=== PATIENT | female | born 1990 | race Caucasian/White ===

== ENCOUNTER 2024-02-14 17:23 | Emergency (ER) | payer MEDICAID, SELFPAY ==
[2024-02-14 17:35] VITALS: BP 159/67; PULSE 98; RESP 18; TEMP 36.8; O2SAT 94; BMI 57.6
--- NOTE | 2024-02-17 00:09 | ED.GENADULT ---
HPI - General Adult General Chief complaint: Extremity Pain/Injury, Lower Stated complaint: R leg pain Time Seen by Provider: 02/14/24 17:53 History of Present Illness HPI narrative: LWBS Related Data Home Medications ?Medication ?Instructions ?Recorded ?Confirmed dextroamphetamine-amphetamine 20 1 tab PO DAILY 02/14/24 02/14/24 mg tablet dextroamphetamine-amphetamine ER 1 cap PO BID 02/14/24 02/14/24 30 mg 24hr capsule,extend release Course Vital Signs Vital signs: Initial Vital Signs Temperature 98.2 F 02/14/24 17:35 Temperature Source Temporal Artery Scan 02/14/24 17:35 Pulse Rate 98 02/14/24 17:35 Pulse Rhythm Regular 02/14/24 17:35 Pulse Strength 3+ Normal 02/14/24 17:35 Respiratory Rate 18 02/14/24 17:35 Blood Pressure 159/67 H 02/14/24 17:35 Blood Pressure Mean 97 02/14/24 17:35 Blood Pressure Position Sitting 02/14/24 17:35 Pulse Oximetry 94 02/14/24 17:35 Oxygen Delivery Method Room Air 02/14/24 17:35 Vital Signs Temperature 98.2 F 02/14/24 17:35 Pulse Rate 98 02/14/24 17:35 Respiratory Rate 18 02/14/24 17:35 Blood Pressure 159/67 H 02/14/24 17:35 Pulse Oximetry 94 02/14/24 17:35 Oxygen Delivery Method Room Air 02/14/24 17:35 Temperature 98.2 F 02/14/24 17:35 Pulse Rate 98 02/14/24 17:35 Respiratory Rate 18 02/14/24 17:35 Blood Pressure 159/67 H 02/14/24 17:35 Pulse Oximetry 94 02/14/24 17:35 Oxygen Delivery Method Room Air 02/14/24 17:35 Discharge Plan Discharge Patient Disposition: Left Without Being Seen
== END 2024-02-14 17:53 | disposition left against medical advice (07) ==
PROVIDERS: Emergency Provider Emergency Medicine
DX: Z53.21 Procedure and treatment not carried out due to patient leaving prior to being seen by health care provider (principal)
CPT/HCPCS: 99281

== ENCOUNTER 2024-10-12 07:57 | Emergency (ER) | payer MEDICAID, SELFPAY ==
[2024-10-12 07:59] VITALS: BP 146/68; PULSE 93; RESP 18; TEMP 36.4; O2SAT 97; BMI 57.2
--- OUTSIDE RECORDS SUMMARY | 2024-10-12 07:59 | XMS_ITS | Encounter Summary ---
Author Organization [facility] Address [address], [place] [address] Care Team Providers Care Tax Collection Coordinator Name Role Phone Sheyla Torres MD Primary Care Provider [phone] Encounter Details Date Type Department Care Team (Latest Contact Info) Description 10/14/1996 Orders Only Naida Carvajal [facility] [address] [place] [address] Social History Tobacco Use Types Packs/Day Years Used Date Smoking Tobacco: Never Assessed Comments Unknown Sex and Gender Information Value Date Recorded Sex Assigned at Not on file Legal Sex Female 4:42 AM CDT Gender Identity Not on file Sexual Orientation Not on file documented as of this encounter Plan of Treatment Not on file documented as of this encounter Visit Diagnoses Not on filedocumented in this encounter Care Teams Tax Collection Coordinator Relationship Specialty Start Date End Date Sheyla Torres MD [address] [place] [address] PCP - General Family Practice 10/01/16 documented as of this encounter
--- OUTSIDE RECORDS SUMMARY | 2024-10-12 07:59 | XMS_ITS | Encounter Summary ---
Author Organization [facility] Address [address] [address] Care Team Providers Care Expediter Service Order Name Role Phone Sheyla Torres MD Primary Care Provider [phone] Encounter Details Date Type Department Care Team (Latest Contact Info) Description 05/17/1996 Orders Only Lorenzo Kilpatrick MD OFF SITE [address] [place] [address] Social History Tobacco Use Types Packs/Day Years [...] on filedocumented in this encounter Care Teams Expediter Service Order Relationship Specialty Start Date End Date Sheyla Torres MD [address] [place] [address] PCP - General Family Practice 10/01/16 documented as of this encounter
--- OUTSIDE RECORDS SUMMARY | 2024-10-12 07:59 | XMS_ITS | Encounter Summary ---
Author Organization [facility] Address [address] [place] [address] Care Team Providers Care Wool Hat Flanger Name Role Phone Sheyla Torres MD Primary Care Provider [phone] Encounter Details Date Type Department Care Team (Latest Contact Info) Description 03/21/1997 Orders Only Skip Osorio MD [address] [place], [place] [address] Social History Tobacco Use Types Packs/Day Years [...] on filedocumented in this encounter Care Teams Wool Hat Flanger Relationship Specialty Start Date End Date Sheyla Torres MD [address] [place] [address] PCP - General Family Practice 10/01/16 documented as of this encounter
--- OUTSIDE RECORDS SUMMARY | 2024-10-12 07:59 | XMS_ITS | Clinical Summary ---
Author Organization [facility] Address [address] [place] [address] Care Team Providers Care Otolaryngology Physician Name Role Phone No Ref-Primary, Physician Primary Care Provider Allergies Active Allergy Reactions Criticality Noted Date Comments Amoxicillin Anaphylaxis High 09/06/2017 Metronidazole Itching 06/01/2017 No Clinical Screening - See Comments 09/06/2017 Another antibiotic Medications Vit-Fe Fumarate-FA (PNV PLUS MULTIVITAMIN) 27-1 MG TABS per tablet Take 1 tablet by mouth daily Active acetaminophen (TYLENOL) 325 MG tablet Take 650 mg by mouth every 6 hours as needed for mild pain Active oxyCODONE (ROXICODONE) 5 MG tabletIndicatio ns:S/P repeat low transverse Take 1-2 tablets (5-10 mg) by mouth every 4 hours as needed 12 tablet 03/01/2020 Active oxyCODONE-aceta minophen (PERCOCET) 5-325 MG tablet Take 1-2 tablets by mouth every 4 hours as needed for pain 8 tablet 01/15/2021 Active amphetamine-dex troamphetamine (ADDERALL) 20 MG tablet Take 20 mg by mouth daily as needed Active amphetamine-dex troamphetamine (ADDERALL XR) 30 MG 24 hr capsule Take 30 mg by mouth 2 times daily Active Active Problems Problem Noted Date Diagnosed Date S/P repeat low transverse 02/27/2020 Immunizations Immunization Administration Dates Next Due Influenza Vaccine >6 months,quad, PF 03/01/2020 Social History Tobacco Use Types Packs/Day Years Used Date Smoking Tobacco: Every Day Cigarettes Smokeless Tobacco: Never Tobacco Cessation:Ready to Q uit: No Alcohol Use Standard Drinks/Week Comments Never 0 (1 standard drink = 0.6 oz pur e alcohol) AUDIT-C Answer Date Recorded Q1: How often do you have a drink containing alc ohol? Never 02/24/2020 Average Number of Drinks Not on file 020 Frequency of Binge Drinking Not on file 02/04 [place] Depression Scale Answer Date Recorded [place] Depression Score 5 02/29/2020 Last EPDS Self Harm Result Not on file 02/28 Adolescent Education Answer Date Record ed Getting School Help Needed Not on file 11/25 Comments No Sex and Gender Information Value Date Recorded Sex Assigned at Not on file Legal Sex Female 3:04 PM CDT Gender Identity Not on file Sexual Orientation Not on file Last Filed Vital Signs Vital Sign Reading Time Taken Comments Blood Pressure 143/94 10/15/2023 3:48 PM CDT Pulse 96 10/15/2023 3:30 PM CDT Temperature 36.9 C (98.4 F) 10/15/2023 2:30 PM CDT Respiratory Rate 22 10/15/2023 12:20 PM CDT Oxygen Saturation 98% 10/15/2023 3:48 PM CDT Inhaled Oxygen Concentration - - Weight 127 kg (280 lb) 10/15/2023 12:20 PM CDT Height 149.9 cm (4' 11) 10/15/2023 12:20 PM CDT Body Mass Index 56.55 10/15/2023 12:20 PM CDT Plan of Treatment Health Maintenance Due Date Last Done Comments ADVANCE CARE PLANNING 1990 ANNUAL REVIEW OF HM ORDERS 1990 PNEUMOCOCCAL VACCINE: PEDIATRICS (0 to 5 YEARS) AND AT-RISK PATIENTS (6 to 49 YEARS) (1 of 2 - PCV) 2009 PAP 08/31/2011 YEARLY PREVENTIVE VISIT 05/08/2020 05/09/2019, 04/24 DTAP/TDAP/TD VACCINE (8 - Td or Tdap) 08/27/2022 08/27/2012, 06/01/2010, 06/07/2002, Additional history exists COVID-19 VACCINE ( - season) 2023 PHQ-2 (once per calendar year) 2024 INFLUENZA VACCINE (#1) 2024 , 02/21/2018, 02/17/2015, Additional history exists ZOSTER VACCINE (1 of 2) 2040 HEPATITIS B VACCINE Completed 01/19/2001, 01/19/2001, 05/29/2000, Additional history exists MENINGITIS VACCINE Aged Out 07/07/2006, 07/07/2006 No longer eligible based on patient's age to complete this topic HPV VACCINE Completed 11/28/2006, 06/2006, 06/08/2006 HEPATITIS C SCREENING Completed 05/09/2019 HIV SCREENING Completed 08/19/2019, 05/09/2019 Procedures Procedure Name Priority Date/Time Associated Diagnosis Comments HIV ANTIGEN ANTIBODY COMBO Routine 08/19/2019 from Last 3 Months or Most Recently Relevant to Health Maintenance Results * HIV Antigen Antibody Combo (08/19/2019) HIV Antigen Antibody Combo non reactive Blood specimen (specimen) Patient Reported LAB - BLOOD ORDERABLES Final Re sult from Last 3 Months or Most Recently Relevant to Health Maintenance Insurance [employer] Advance Directives For more information, please contact: [phone] * Full Code (Latest Code Status on File) Date Activated Date Inactivated Comments 02/28/2020 6:02 AM 03/01/2020 2:59 PM All basic and advanced life-sustaining interventions are performed as appropriate Question Answer Comments Code status determined by: Discussion with fernandoe nt/ legal decision maker Care Teams Otolaryngology Physician Relationship Specialty Start Date End Date No Ref-Primary, Physician PCP - General 10/15/23
--- OUTSIDE RECORDS SUMMARY | 2024-10-12 07:59 | XMS_ITS | Encounter Summary ---
Author Organization [facility] Address [address] [place] [address] Care Team Providers Care Blueprint Assembler Name Role Phone Sheyla Torres MD Primary Care Provider [phone] Encounter Details Date Type Department Care Team (Latest Contact Info) Description 02/05/1997 Orders Only Je Alvarenga MD [address] [facility] [id number] [place] [address] Social History Tobacco Use Types Packs/Day Years [...] on filedocumented in this encounter Care Teams Blueprint Assembler Relationship Specialty Start Date End Date Sheyla Torres MD [address] [place] [address] PCP - General Family Practice 10/01/16 documented as of this encounter
--- OUTSIDE RECORDS SUMMARY | 2024-10-12 07:59 | XMS_ITS | Encounter Summary ---
Author Organization [facility] Address [address], [place] [address] Care Team Providers Care Lens Grinder Rough Name Role Phone Sheyla Torres MD Primary Care Provider [phone] Encounter Details Date Type Department Care Team (Latest Contact Info) Description 08/15/1996 Orders Only Naida Carvajal [facility] [address], [place] [address] Social History Tobacco Use Types Packs/Day Years [...] on filedocumented in this encounter Care Teams Lens Grinder Rough Relationship Specialty Start Date End Date Sheyla Torres MD [address] [place] [address] PCP - General Family Practice 10/01/16 documented as of this encounter
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
--- OUTSIDE RECORDS SUMMARY | 2024-10-12 08:00 | XMS_ITS | Patient Health Record ---
Author Organization [facility] Address [address] [place] [address] Care Team Providers Care Auto Body Repair Technician Name Role Phone Sheyla Torres Primary Care Provider BOGDAN Patton Unavailable [phone] Allergies Allergen (clinical drug ingredient) Drug/Non Drug Allergy documented on EMR Reaction Allergy Type Onset Date Status pine trees (uncoded) Unknown Allergy Active amoxicillin Amoxicillin Unknown Drug Allergy Act ella Reason For Referral No Information Medications Medication SIG (Take, Route, Frequency, Duration) Notes Start Date End Date Status Adderall XR Active Social History Tobacco Use: Social History Observation Description Date Details (start date - stop date) Current Smoker NA - NA Social History Alcohol Use: Social Info Question Answer Notes Recreational drugs Recreational Drug Use: No Alcohol Screen Did you have a drink containing alcohol in the past year? Yes Points 0 Interpretation Negative Tobacco Use: Social Info Question Answer Notes Tobacco use/smoking Are you a current smoker Plan Of Treatment No Information Insurance Providers Payer Name Payer Address Payer Phone Subscriber Number Group Number Insured Name Patient Relationship to Insured Coverage Start Date Coverage End Date [facility] [address] [place], [place] [id number] Leighann Pimentel Self - patient is the insured Medications Administered Medication Instructions Date of Administration Dosage Notes Kenalog 40 mg/ml 04/18/2022 80 mg Medical (General) History Medical History History ICD Code asthma seizure Surgical History Surgery Date(Month/Year) c section
--- OUTSIDE RECORDS SUMMARY | 2024-10-12 08:00 | XMS_ITS | Clinical Summary ---
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 of HPV in malignant processes has not been established. Methodology: Real Time PCR Other (Cervical) 01/12/2024 2:33 PM SPRAY II PAINTER 01/13/2024 6:40 AM SPRAY II PAINTER Narrative [facility] - 01/18/2024 10:34 AM SPRAY II PAINTER SPLIT 01/12/2024 FROM [id number] Bria MCKEON PATHOLOGY/CYTOLOGY Fin al Result [address] [address], [place] [facility] [place] [address] from Last 3 Months or Most Recently Relevant to Health Maintenance Additional Health Concerns Infection Onset Date Last Indicated Rule-Out Stool Pathogen 08/29/2024 08/30/19 25 Insurance [id number] [address] KRYSTIAN DE LEON [address] CARE [place] KRYSTIAN LOMAS [id number] Advance Directives * Full Code (Latest Code Status on File) Date Activated Date Inactivated Comments 10/17/2023 10:31 PM 10/18/2023 7:01 PM Question Answer Comments Code Status Discussion: Reviewed Preferences Care Teams Lesson Instructor Relationship Specialty [place] [address] KRYSTIAN López [address] PCP - General Physician Community Resource Officer 01/12/24
--- NOTE | 2024-10-12 08:21 | CRLHL7_ITS ---
For Patients: As a result of the Century Cures Act, medical imaging exams and procedure reports are released immediately into your electronic medical record. You may view this report before your referring provider. If you have questions, please contact your health care provider. INDICATION: Abdominal pain COMPARISON: None TECHNIQUE: CT examination of the abdomen and pelvis was performed following the uneventful intravenous administration of 138 cc of Isovue 370. Thin section axial images were obtained from the lung bases through the pubic symphysis. Please note that all CT scans at this facility use dose modulation, iterative reconstruction, and/or weight-based dosing when appropriate to reduce radiation dose to as low as reasonably achievable. FINDINGS: LUNG BASES: The lung bases as visualized appear normal.The heart size is normal at the lung bases. LIVER/BILIARY SYSTEM:Enlarged fatty infiltrated liver. Contracted but otherwise unremarkable appearing gallbladder ADRENALS: Normal KIDNEYS, URETERS and BLADDER:Evaluation is somewhat limited in the mid abdomen due to motion artifact. The left kidney appears normal. The right kidney is malrotated. There is a suggestion of right perinephric and periureteric inflammatory change with mild prominence of the right ureter. There may also be abnormal enhancement of the urothelium of the right ureter. No stone identified within the course of the ureter. Differential considerations are recent passage of a stone, obstruction by a nonvisualized cause or UTI/pyelonephritis. Correlate with urinalysis. SPLEEN:Normal appearance. PANCREAS: Appears normal. RETROPERITONEUM and MESENTERY: There is no mass, adenopathy or aortic aneurysm. GASTROINTESTINAL SYSTEM: There is no evidence of diverticulitis, colitis, mechanical obstruction, or appendicitis. The small bowel as visualized appears normal. PELVIS: No mass, adenopathy or free fluid. OSSEOUS STRUCTURES and ABDOMINAL WALL: There is an age-appropriate appearance of the osseous structures.No significant abdominal wall defect. OTHER: No free fluid or free air. IMPRESSION: 1. Significant limitations due to motion artifact especially in the mid abdomen. 2. The right kidney is incidentally malrotated. There is a suggestion of right-sided perinephric and periureteric inflammatory change with mild prominence of the right ureter and probable abnormal enhancement of the mucosa of the right ureter. No visible stone. This could be due to recent passage of a stone, current obstruction due to a nonvisualized cause or urinary tract infection/pyelonephritis. Correlate with urinalysis. 3. Enlarged fatty infiltrated liver. Contracted but otherwise unremarkable appearing gallbladder. Please note that all CT scans at this facility use dose modulation, iterative reconstruction, and/or weight-based dosing when appropriate to reduce radiation dose to as low as reasonably achievable. Dictated by Tenzin Akbar MD @ 10/12/2024 9:29:57 AM (Electronically Signed)
--- NOTE | 2024-10-12 08:23 | ED.ABDPAIN ---
HPI - Abdominal Pain General Chief Complaint: Abdominal Pain Stated Complaint: pelvic pain, pain on right side Time Seen by Provider: 10/12/24 08:17 History of Present Illness HPI narrative: Patient is a 34-year-old woman without a history of abdominal surgeries who presents with right-sided abdominal pain of approximately 3 hours duration. The pain is sharp without radiation. She has mild dysuria as well. No nausea no vomiting no fevers no chills. She states that she is not . She has had no similar symptoms previously and otherwise been her usual state of health. Related Data Home Medications ?Medication ?Instructions ?Recorded ?Confirmed dextroamphetamine-amphetamine 20 1 tab PO DAILY 02/14/24 10/12/24 mg tablet dextroamphetamine-amphetamine ER 1 cap PO BID 02/14/24 10/12/24 30 mg 24hr capsule,extend release Allergies Allergy/AdvReac Type Severity Reaction Status Date / Time amoxicillin Allergy Severe Verified 10/12/24 09:05 Review of Systems Status of ROS Reports: 10 or more systems reviewed and unremarkable except as noted in History and below Exam Narrative: Exam Narrative: EXAM GENERAL: Patient appears comfortable and well. Obese. EYES: No scleral icterus. LYMPH: No supraclavicular or cervical lymphadenopathy. SKIN: Visible skin seen during exam normal or with benign process only. EXT: No dependent lower extremity pedal edema. HEART: Regular rate and rhythm with no murmurs, rubs, or gallops. LUNGS: Clear to auscultation bilaterally with no crackles or wheezes. ABD: Soft, non tender, non distended. PSYCH: Good eye contact, speech is not pressured. Const: Vital Signs, click to edit/add: Vital Signs - 24 hr 10/12/24 07:59 Temperature 97.5 F L Pulse Rate [Right Pulse Oximeter] 93 Respiratory Rate 18 Blood Pressure [Ri ght Upper Arm] 146/68 H Pulse Oximetry 97 Oxygen Delivery Me thod Room Air Course Course ED Course: Patient seen and examined. Saline lock placed CBC comprehensive metabolic panel lipase UA serum CT abdomen pelvis pending. Vital Signs Vital signs: Initial Vital Signs Temperature 97.5 F L 10/12/24 07:59 Temperature Source Temporal Artery Scan 10/12/24 07:59 Pulse Rate 93 10/12/24 07:59 Pulse Strength 3+ Normal 10/12/24 07:59 Respiratory Rate 18 10/12/24 07:59 Blood Pressure 146/68 H 10/12/24 07:59 Blood Pressure Mean 94 10/12/24 07:59 Blood Pressure Position Sitting 10/12/24 07:59 Pulse Oximetry 97 10/12/24 07:59 Oxygen Delivery Method Room Air 10/12/24 07:59 Vital Signs Temperature 97.5 F L 10/12/24 07:59 Pulse Rate 93 10/12/24 07:59 Respiratory Rate 18 10/12/24 07:59 Blood Pressure 146/68 H 10/12/24 07:59 Pulse Oximetry 97 10/12/24 07:59 Oxygen Delivery Method Room Air 10/12/24 07:59 Temperature 97.5 F L 10/12/24 07:59 Pulse Rate 93 10/12/24 07:59 Respiratory Rate 18 10/12/24 07:59 Blood Pressure 146/68 H 10/12/24 07:59 Pulse Oximetry 97 10/12/24 07:59 Oxygen Delivery Method Room Air 10/12/24 07:59 MDM - Abdominal Pain MDM Narrative Medical decision making narrative: Patient is a 34-year-old woman who presents with right flank pain. She has evidence of UTI. She is a chronically malrotated right kidney as well. No other signs of infection. CT otherwise unremarkable. This time I did place her on Bactrim double strength twice a day for 5 days plenty of rest plenty fluids follow-up with primary care as needed. The urine cultures pending. No signs of sepsis. Lab Data Labs: Lab Results 10/12/24 10/12/24 Range/Units 08:35 08:45 WBC 9.75 (4.50-11.00) K/uL RBC 4.40 (4.00-5.20) m/uL Hgb 13.9 (12.0-16.0) gm/dL Hct 41.9 (33.0-51.0) % MCV 95 (80-100) fL MCH 32 (26-34) pg MCHC 33 (32-36) gm/dL RDW Coeff of Timoteo 13.0 (11.5-15.5) % Plt Count 359 (140-440) K/uL Neut % (Auto) 61.2 (42.0-72.0) % Lymph % (Auto) 25.0 (20-44) % [place] % (Auto) 9.9 (0.0-11.0) % Eos % (Auto) 2.9 (0.0-7.0) % Baso % (Auto) 0.7 (0.0-3.0) % Neut # (Auto) 5.96 (1.7-7.0) K/uL Lymph # (Auto) 2.44 (0.90-2.90) K/uL [place] # (Auto) 1.00 H (0.00-0.90) K/UL Eos # (Auto) 0.28 (0.00-0.50) K/uL Baso # (Auto) 0.07 (0.00-0.30) K/uL Abs Immat Gran (auto) 0.03 (0.00-0.30) K/uL Imm/Tot Granulo (auto) 0.3 % Sodium 136 (135-149) mmol/L Potassium 3.6 (3.6-5.1) mmol/L Chloride 102 (96-114) mmol/L Carbon Dioxide 24 (20-32) mmol/L Anion Gap 10 (7-15) mEq/L BUN 11 (5-24) mg/dL Creatinine 0.8 (0.5-1.5) mg/dL Estimated Creat Clear 200.80 Estimated GFR 99 ml/min Glucose 137 H (60-115) mg/dL Calcium 9.9 (8.4-10.6) mg/dL Total Bilirubin 1.0 (0.1-1.5) mg/dL AST 151 H (12-35) U/L ALT 211 H (4-35) U/L Alkaline Phosphatase 124 (40-150) U/L Total Protein 8.5 H (6.0-8.3) g/dL Albumin 4.4 (3.3-5.0) g/dL Lipase 122 (23-300) U/L Urine Color Yellow (Yellow) Urine Appearance Slightly Cloudy A (Clear) Urine pH 6.0 (5.0-8.5) Ur Specific [place] 1.015 (1.000-1.030) Urine Protein Negative (Negative) Urine Glucose (UA) Negative (Negative) Urine Ketones Negative (Negative) Urine Blood Trace-intact A (Negative) Urine Nitrite Positive A (Negative) Urine Bilirubin Negative (Negative) Urine Urobilinogen 0.2 (0.2-1.0) Ur Leukocyte Esterase 1+ A (Negative) Urine RBC 2-5 A (0-2) Urine WBC 25-50 A (0-5) Ur Squamous Epith Cells Few (None-Few) Urine Bacteria Moderate A (None) Urine HCG, Qual Negative (Negative) Discharge Plan Discharge Clinical Impression: UTI (urinary tract infection) Patient Disposition: Home, Self-Care Condition: Stable Instructions: Urinary Tract Infection in Women (ED) Additional Instructions: Bactrim as directed Tylenol Motrin Rest Fluids Primary care follow-up as needed. Activity Level: No Restrictions Discharge Diet: Regular Prescriptions: No Action dextroamphetamine-amphetamine 20 mg tablet 1 tab PO DAILY dextroamphetamine-amphetamine 30 mg capsule,extended release 24hr 1 cap PO BID Follow Up/Referrals: Provider,Not a Local [Primary Care Provider, Family Practice] Stand Alone Forms: MyHealth Info Instructions
[2024-10-12 08:46] LABS: Appearance Urine Slightly Cloudy (Clear)
[2024-10-12 08:48] LABS: Ur HCG Qualitative* Negative (Negative)
[2024-10-12 08:53] LABS: Hematocrit 41.9 % (33.0-51.0); Hemoglobin* 13.9 gm/dL (12.0-16.0); Immature Granulocytes Abs Auto 0.03 K/uL (0.00-0.30); Immature Granulocytes Pct Auto 0.3 %; Lymphocytes Absolute Auto 2.44 K/uL (0.90-2.90); Mean Corpuscular HGB Conc 33 gm/dL (32-36); Mean Corpuscular Hemoglobin 32 pg (26-34); Mean Corpuscular Volume 95 fL (80-100); RDW Coefficient of Variation % 13.0 % (11.5-15.5); Red Blood Count 4.40 m/uL (4.00-5.20); White Blood Count* 9.75 K/uL (4.50-11.00)
[2024-10-12 08:57] LABS: Slide Review Reflex No
[2024-10-12 09:05] LABS: Albumin* 4.4 g/dL (3.3-5.0); Chloride* 102 mmol/L (96-114); Potassium* 3.6 mmol/L (3.6-5.1); Sodium* 136 mmol/L (135-149)
[2024-10-12 09:08] LABS: Alanine Aminotransferase* 211 U/L (4-35); Alkaline Phosphatase* 124 U/L (40-150); Anion Gap 10 mEq/L (7-15); Aspartate Amino Transferase* 151 U/L (12-35); Bilirubin Total* 1.0 mg/dL (0.1-1.5); Blood Urea Nitrogen* 11 mg/dL (5-24); Calcium* 9.9 mg/dL (8.4-10.6); Carbon Dioxide* 24 mmol/L (20-32); Creatinine* 0.8 mg/dL (0.5-1.5); Est. Creatinine Clearance* 200.80; Estimated Glomerular Filt Rate 99 ml/min; Glucose* 137 mg/dL (60-115); Total Protein* 8.5 g/dL (6.0-8.3)
== END 2024-10-12 09:47 | disposition home or self-care (01) ==
PROVIDERS: Emergency Provider Internal Medicine
DX: N39.0 Urinary tract infection, site not specified (principal)
CPT/HCPCS: 36415; 74177; 80053; 81001; 81003; 81025; 83690; 84703; 85025; 87086; 99283; 99284; Q9967

== ENCOUNTER 2025-01-11 10:27 | Emergency (ER) | payer MEDICAID, SELFPAY ==
[2025-01-11] VITALS (9 sets, daily range): BP systolic 185; BP diastolic 102; PULSE 88–94; RESP 22; TEMP 36.7; O2SAT 85–97; BMI 57.6
--- OUTSIDE RECORDS SUMMARY | 2025-01-11 10:29 | XMS_ITS | Encounter Summary ---
Author Organization [facility] Address [address] [place] [address] Care Team Providers Care Extension Service Agent Name Role Phone Sheyla Torres MD Primary Care Provider [phone] Encounter Details Date Type Department Care Team (Latest Contact Info) Description 03/21/1997 Orders Only Skip Osorio MD [address] [place], [place] [id number] Social History Tobacco Use Types Packs/Day Years [...] on filedocumented in this encounter Care Teams Extension Service Agent Relationship Specialty Start Date End Date Sheyla Torres MD [address] [place] [address] PCP - General Family Practice 10/01/16 documented as of this encounter
--- OUTSIDE RECORDS SUMMARY | 2025-01-11 10:29 | XMS_ITS | Encounter Summary ---
Author Organization [facility] Address [address], [place] [address] Care Team Providers Care Ground Support Agent Name Role Phone Sheyla Torres MD Primary Care Provider [phone] Encounter Details Date Type Department Care Team (Latest Contact Info) Description 10/14/1996 Orders Only Naida Carvajal [facility] [address], [place] [address] Social History Tobacco Use Types Packs/Day Years [...] on filedocumented in this encounter Care Teams Ground Support Agent Relationship Specialty Start Date End Date Sheyla Torres MD [address] [place] [address] PCP - General Family Practice 10/01/16 documented as of this encounter
--- OUTSIDE RECORDS SUMMARY | 2025-01-11 10:29 | XMS_ITS | Encounter Summary ---
Author Organization [facility] Address [address] [place] [address] Care Team Providers Care Granite Polisher Name Role Phone Sheyla Torres MD Primary Care Provider [phone] Encounter Details Date Type Department Care Team (Latest Contact Info) Description 02/05/1997 Orders Only Je Alvarenga MD [address] [facility] [id number] [place] [address] Social History Tobacco Use Types Packs/Day Years [...] on filedocumented in this encounter Care Teams Granite Polisher Relationship Specialty Start Date End Date Sheyla Torres MD [address] [place] [address] PCP - General Family Practice 10/01/16 documented as of this encounter
--- OUTSIDE RECORDS SUMMARY | 2025-01-11 10:29 | XMS_ITS | Encounter Summary ---
Author Organization [facility] Address [address] [address] Care Team Providers Care Loading Dock Helper Name Role Phone Sheyla Torres MD Primary Care Provider Encounter Details Date Type Department Care Team (Latest Contact Info) Description 08/15/1996 Orders Only Naida Carvajal [facility] [address], [place] [address] Social History Tobacco Use Types Packs/Day Years [...] on filedocumented in this encounter Care Teams Loading Dock Helper Relationship Specialty Start Date End Date Sheyla Torres MD [address] [place] [address] PCP - General Family Practice 10/01/16 documented as of this encounter
--- OUTSIDE RECORDS SUMMARY | 2025-01-11 10:29 | XMS_ITS | Encounter Summary ---
Author Organization [facility] Address [address], [place] [address] Care Team Providers Care Housekeeping Attendant Name Role Phone Sheyla Torres MD Primary Care Provider [phone] Encounter Details Date Type Department Care Team (Latest Contact Info) Description 05/17/1996 Orders Only Lorenzo Kilpatrick MD OFF SITE [address] [place] [address] Social History Tobacco Use Types Packs/Day Years [...] on filedocumented in this encounter Care Teams Housekeeping Attendant Relationship Specialty Start Date End Date Sheyla Torres MD [address] [place] [address] PCP - General Family Practice 10/01/16 documented as of this encounter
--- OUTSIDE RECORDS SUMMARY | 2025-01-11 10:29 | XMS_ITS | Clinical Summary ---
Author Organization [facility] Address [address] [place] [address] Care Team Providers Care Ict Sales Representative Name Role Phone No Ref-Primary, Physician Primary Care Provider Allergies Active Allergy Reactions Criticality Noted Date Comments Amoxicillin Anaphylaxis High 09/06/2017 Metronidazole Itching 06/01/2017 No Clinical Screening - Othe r Allergy 09/06/2017 Another antibiotic Medications Vit-Fe Fumarate-FA (PNV [...] of Binge Drinking Not on file 02/04 Bronte Depression Scale Answer Date Recorded Bronte Depression Scale Total 5 02/29/2020 Last EPDS Self Harm Result [...] 1990 ANNUAL REVIEW OF HM ORDERS 1990 PAP 08/31/2011 YEARLY PREVENTIVE VISIT 05/08/2020 05/09/2019, 04/24 DTAP/TDAP/TD VACCINE (8 - Td or Tdap) 08/27/2022 08/27/2012, 06/01/2010, 06/07/2002, Additional history exists PHQ-2 (once per calendar year) 2024 COVID-19 VACCINE (1 - season) 2024 INFLUENZA VACCINE (#1) 2024 , 02/21/2018, 02/17/2015, Additional history exists ZOSTER VACCINE (1 of 2) 2040 HEPATITIS B VACCINE Completed 01/19/2001, 01/19/2001, 05/29/2000, Additional history exists MENINGITIS VACCINE Aged Out 07/07/2006, 07/07/2006 No longer eligible based on patient's age to complete this topic HPV VACCINE Completed 11/28/2006, 06/2006, 06/08/2006 HEPATITIS C SCREENING Completed 05/09/2019 HIV SCREENING Completed 08/19/2019, 05/09/2019 PNEUMOCOCCAL VACCINE: PEDIATRICS (0 to 5 YEARS) AND AT-RISK PATIENTS (6 to 49 YEARS) Aged Out No longer eligible based on patient's age to complete this topic Procedures Procedure Name Priority Date/Time Associated Diagnosis Comments HIV ANTIGEN ANTIBODY COMBO Routine 08/19/2019 from Last 3 Months or Most Recently Relevant to Health Maintenance Results * HIV Antigen Antibody Combo (08/19/2019) HIV Antigen Antibody Combo non reactive Blood specimen (specimen) us Patient Reported LAB - BLOOD ORDERABLES Final Re sult from Last 3 Months or Most Recently Relevant to Health Maintenance Insurance [employer] Advance Directives For more information, please contact: [phone] * Full Code (Latest Code Status on File) Date Activated Date Inactivated Comments 02/28/2020 6:02 AM 03/01/2020 2:59 PM All basic and advanced life-sustaining interventions are performed as appropriate Question Answer Comments Code status determined by: Discussion with fernandoe nt/ legal decision maker Care Teams Ict Sales Representative Relationship Specialty Start Date End Date No Ref-Primary, Physician PCP - General 10/15/23
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
--- OUTSIDE RECORDS SUMMARY | 2025-01-11 10:30 | XMS_ITS | Patient Health Record ---
Author Organization [facility] Address [address] [place] [address] Care Team Providers Care Medical Authorization Specialist Name Role Phone Sheyla Torres Primary Care Provider BOGDAN Patton Unavailable [phone] Allergies Allergen (clinical drug ingredient) Drug/Non Drug [...] Insured Coverage Start Date Coverage End Date [employer] [facility] [address] [place], [place] [phone] [id number] Leighann Pimentel Self - patient is the insured Medications Administered Medication Instructions Date of Administration Dosage Notes Kenalog 40 mg/ml 04/18/2022 80 mg Medical (General) History Medical History History ICD Code asthma seizure Surgical History Surgery Date(Month/Year) c section
--- OUTSIDE RECORDS SUMMARY | 2025-01-11 10:30 | XMS_ITS | Clinical Summary ---
Author Organization [facility] Address [address] [place] [id number] Care Team Providers Care White Kid Buffer Name Role Phone Bria Mckeon Primary Care Provider Allergies Active Allergy Reactions Criticality Noted Date Comments Amoxicillin Anaphylaxis,Hives High 02/12/2003 Celecoxib Hives 06/25/2024 Metronidazole Itching 06/01/2017 Medications ashwagandha extract 62.5 mg chew Chew 2 Tablets by mouth once daily. 5 Active gabapentin (NEURONTIN) 300 mg capsuleIndications :Lumbar radiculopathy,Info Analyst trent left SI joint pain,Severe low back pain Take 2 Capsules (600 mg) by mouth at bedtime. 30 Capsule 3 5 Active dextroamphetamine- amphetamine (AdderalL) 20 mg tabletIndications: Attention deficit hyperactivity disorder (ADHD), unspecified ADHD type Take 1 Tablet (20 mg) by mouth two times daily. 60 Tablet 5 02/05/20 25 Active dextroamphetamine- amphetamine (AdderalL) 20 mg tabletIndications: Attention deficit hyperactivity disorder (ADHD), unspecified ADHD type Take 1 Tablet (20 mg) by mouth two times daily. 60 Tablet 5 Active dextroamphetamine- amphetamine (Adderall XR) 30 mg Extended-Release capsuleIndications :Attention deficit hyperactivity disorder (ADHD), unspecified ADHD type Take 2 Capsules (60 mg) by mouth once daily. 60 Capsule 5 02/05/20 25 Active dextroamphetamine- amphetamine (Adderall XR) 30 mg Extended-Release capsuleIndications :Attention deficit hyperactivity disorder (ADHD), unspecified ADHD type Take 2 Capsules (60 mg) by mouth once daily. 30 Capsule 5 Active nicotine 14 mg/24 hr (NICODERM; HABITROL) 14 mg/24 hr patchIndications:C igarette nicotine dependence without complication Apply 1 Patch on dry, clean, hairless skin once daily. 14 Patch 3 5 Active nicotine 7 mg/24 hr (NICODERM; HABITROL) 7 mg/24 hr patchIndications:C igarette nicotine dependence without complication Apply 1 Patch on dry, clean, hairless skin once daily. 14 Patch 3 5 Active dextroamphetamine- amphetamine (AdderalL) 20 mg tabletIndications: Attention deficit hyperactivity disorder (ADHD), unspecified ADHD type Take 1 Tablet (20 mg) by mouth two times daily. 60 Tablet 5 01/06/20 25 dextroamphetamine- amphetamine (Adderall XR) 30 mg Extended-Release capsuleIndications :Attention deficit hyperactivity disorder (ADHD), unspecified ADHD type Take 2 Capsules (60 mg) by mouth once daily. 60 Capsule 5 01/06/20 25 Active Problems Problem Noted Date Diagnosed Date [...] 12:04 Last Resulted: 01/15/21 12:52 Received From: [place] Controlled substance agreement signed 02/23/2021 Overview (10/17/2023): Prescription: Adderall 60mg XR (#60 tabs 30mg XR), Adderall 20mg IR (#30 tabs) Last fill: 06/29/22x3 month supply Refills: Call for additional 3 months Next visit: in 6 months, after 12/2022 [facility] last accessed: 07/01/22 S/P repeat low transverse 02/27/2020 Food insecurity 08/18/2017 Elevated cholesterol 04/25/2017 Overview (07/27/2023): Elevated LDL 2018. Total cholesterol = < 200, ratio 3.8. [...] refill: 08/14/2020 Next visit in clinic: 01/20/2021 [facility] last checked: 07/20/2020 Resolved Problems Problem Noted [...] Encounters Date Type Department Care Team Description 12/06/2024 10:00 AM CDT Telemedicine [facility] [id number] [place] [id number] Bria Mckeon PA Behavioral Problem; Alcohol Problem; Nicotine Dependence; Sleep Problem (/) 12/05/[address] [address] Bria Mckeon PA Refill Request (Dextroamphetamine-a mphetamine) 12/03/2024 Telephone [facility] [id number] [place] [id number] Bria Mckeon PA Refill Request (Dextroamphetamine-a mphetamine, Dextroamphetamine-am phetamine) from Last 3 Months Immunizations Immunization Administration [...] Date Smoking Tobacco: Every Day Cigarettes 0.5 19.9 Started: 2005 Passive Smoke Exposure: Past Smokeless Tobacco: Never Tobacco Cessation:Ready to Q uit: No; Counseling Given: Not Answered Alcohol Use Standard Drinks/Week Comments Yes 7 (1 standard drink = 0.6 oz pur e alcohol) PHQ-2 Answer Date Recorded PHQ-2 TOTAL SCORE 4 01/12/2024 Social Connections Answer Date Recorded Do you often feel lonely or isolated from those around you? 0 10/17/2023 Alcohol Use Answer Date Recorded How often do you have a drink containing alcohol ? 4 12/06/2024 How many drinks containing a lcohol do you have on a typical day when you are drinking? 3 12/06/2024 How often do you have five or more drinks on one occasion? 4 12/06/2024 Financial Resource Strain Answer Date R ecorded [...] on file Legal Sex Female 6:35 PM MAKE UP GIRL Gender Identity Not on file Sexual Orientation [...] N Livin g 8 9 ROSAS Parra,BAB PIYUSH BELTRAN Delivery Location:[facility] 2013 AB 2019 Term 39w 0d 3.53 kg (7 lb 12.5 oz) M CS-LT ranv Spinal N Livin g 8 9 ROSAS Parra,MAL LISA Roche MD Complications:None Delivery Location:[facility] ( LABOR AND DELIVERY) Last Filed Vital Signs Vital Sign Reading Time Taken Comments Blood Pressure 143/82 08/29/2024 11:14 AM CDT Pulse 98 08/29/2024 11:14 AM CDT Temperature 37.1 C (98.7 F) 08/19/2024 3:50 PM CDT Respiratory Rate 16 01/12/2024 1:34 PM MAKE UP GIRL Oxygen Saturation 97% 08/29/2024 11:14 AM CDT Inhaled Oxygen Concentration - - Weight 129.7 kg (286 lb) 08/29/2024 11:14 AM CDT Height 153.5 cm (5' 0.43) 01/12/2024 1:34 PM CS T Body Mass Index 55.06 01/12/2024 1:34 PM MAKE UP GIRL Plan of Treatment Health Maintenance Due Date Last Done Comments Pneumococcal series for age 6-49 (1 of 2 - PCV) 2009 Influenza Vaccine (#1) 2024 , 02/21/2018, 02/17/2015, Additional history exists BMI (ht and wt on same day) for age 18+ 01/11/2025 01/12/2024, 08/15/2023 Depression screening for age 12+ 01/11/2025 01/12/2024, 08/17/2023, 08/15/2023 Pap test for age 21-65 01/11/2029 01/12/2024 Tetanus booster 01/11/2034 01/12/2024, 08/05, 06/01/2010, Additional history exists RSV vaccine for adults or (1 - 1-dose 75+ series) 2065 Hepatitis B series for 19+ Completed 01/19, 01/19/2001, 05/29/2000, Additional history exists HPV series for age 9-45 Completed 11/29/19 07, 07/07/2006, 06/08/2006 HIV for age 15-65 Completed 08/19/2024, (Verified [...] CDT Screening for STDs (sexually transmitted diseases) PUBLIC POLICY ASSOCIATE THIN PREP PAP AND HPV DNA - AGE 25 AND OVER ([facility]) Routine 01/12/2024 2:33 PM MAKE UP GIRL Screening for cervical cancer from Last 3 Months or Most Recently Relevant to Health Maintenance Results * ANTI HCV [61236.2] (08/19/2024 4:32 PM CDT) HEPATITIS C ANTIBODY NON-REACTI VE NON-REACT MUKUND [facility] Comment: HCV antibody was non-reactive. There is no laboratory evidence of HCV infection. In most cases, no further action is required. However, if recent HCV exposure is suspected, a test for HCV RNA (test code 15701) is suggested. For additional information please refer to http://education.Dabble DB/faq/AQC36x5 (This link is being provided for informational/ educational purposes only.) Blood BLOOD SPECIMEN / Unknown 08/19/2024 4:32 PM CDT 08/19/2024 4:32 PM CDT Bria MCKEON SEND OUTS Final Result [employer] [facility] [address] [place] [address], [facility] [address] [place] [address] * ANTI HIV 1/2 [02698.0] (08/19/2024 4:32 PM CDT) HIV AG/AB, 4TH GEN NON-REACT MUKUND NON-REACT MUKUND [facility] Comment: HIV-1 antigen and HIV-1/HIV-2 antibodies were [...] purpose. For additional information please refer to http://education.Dab[employer] DB/faq/ODA121 (This link is being provided for informational/ educational purposes only.) The performance of this assay has not been clinically validated in patients less than 2 years old. Blood BLOOD SPECIMEN / Unknown 08/19/2024 4:32 PM CDT 08/19/2024 4:32 PM CDT Bria MCKEON SEND OUTS Final Result Performing Organization Address City/State/[facility] Co de Phone Number [employer] [facility] [address] [place] [address], [facility] [address] [place] [address] * PUBLIC POLICY ASSOCIATE THIN PREP PAP AND HPV DNA REFLEX HPV 16/18 - AGE 25 AND OVER ([facility]_) [09546] (01/12/2024 2:33 PM MAKE UP GIRL) CLINICAL INFORMATION [facility] Comment:None given LMP [facility] Comment:01/22/24 PREV. PAP [facility] Comment:04/24/2017 PREV. BX [facility] Comment:NO SOURCE PUBLIC POLICY ASSOCIATE [facility] Comment:Cervix STATEMENT OF ADEQUACY [facility] Comment: Satisfactory for evaluation. Endocervical/transformation zone component present. Age and/or menstrual status not provided INTERPRETATION/RESU LT [facility] Comment: Cytology Results: Negative for intraepithelial lesion or malignancy. INFECTION [facility] Comment:Trichomonas vaginali s identified. COMMENT [facility] Comment: This Pap test has been evaluated with computer assisted technology. MECHANICAL MAINTENANCE [facility] Comment: AVN, CT(ASCP) CT Screening location: [place] [id number] THINPREP TIS PAP ALWAYS MESSAGE [facility] Comment: EXPLANATORY NOTE: The Pap is a [...] HPV HIGH RISK Not Detected NOT DETECTED [facility] Comment: Not Detected High Risk HPV types (16,18,31,33,35,39,45,51,52, 56,58,59,66,68) were not detected. Other HPV types which cause anogenital lesions may be present. The significance of the other types of HPV in malignant processes has not been established. Methodology: Real Time PCR Other (Cervical) 01/12/2024 2:33 PM MAKE UP GIRL 01/13/2024 6:40 AM MAKE UP GIRL Narrative [facility] - 01/18/2024 10:34 AM MAKE UP GIRL SPLIT 01/12/2024 FROM [id number] Bria MCKEON PATHOLOGY/CYTOLOGY Fin al Result [facility] [address] [place] [address], [facility] [address] [place] [address] from Last 3 Months or Most Recently Relevant to Health Maintenance Insurance [id number] [address] KRYSTIAN DE LEON [address] [facility] [place] [id number] Advance Directives * Full Code (Latest Code Status on File) Date Activated Date Inactivated Comments 10/17/2023 10:31 PM 10/18/2023 7:01 PM Question Answer Comments Code Status Discussion: Reviewed Preferences Care Teams White Kid Buffer Relationship Specialty Start [place] [address] [place] [address] PCP - General Physician Endoscopy Technican 01/12/24
[2025-01-11 10:56] LABS: Appearance Urine Clear (Clear)
--- NOTE | 2025-01-11 11:04 | CRLHL7_ITS ---
For Patients: As a result of the Century Cures Act, medical imaging exams and procedure reports are released immediately into your electronic medical record. You may view this report before your referring provider. If you have questions, please contact your health care provider. INDICATION: Abdominal pain. TECHNIQUE: CT abdomen and pelvis acquired with 193 mL Isovue 370 IV contrast. COMPARISON: CT abdomen/pelvis dated 10/12/2024. FINDINGS: Suboptimal evaluation secondary to motion artifact. Liver: Significant hepatomegaly. Diffuse hepatic steatosis. No suspicious focal hepatic lesion. Gallbladder and bile ducts: Unremarkable. Pancreas: Unremarkable. Spleen: Unremarkable. Adrenal glands: Unremarkable. Kidneys: Right perinephric and right periureteral inflammation, with mild right hydronephrosis and right hydroureter. No obstructing ureteral calculus is identified. Subcentimeter nonobstructing calculi in the lower pole of the right kidney measuring up to 0.4 cm. Retroperitoneum: No lymphadenopathy. Bowel and mesentery: Bowel is not obstructed. No significant ascites. Normal appendix. Bladder: Mild circumferential wall thickening. Reproductive organs: Unremarkable. Pelvic lymph nodes: No lymphadenopathy. Vessels: Unremarkable. Abdominal wall: No acute abdominal wall abnormality. Bones: Mild multilevel degenerative changes of the spine. No suspicious/aggressive focal osseous lesion. Sequelae of sacroiliitis. Lower chest: Bibasilar atelectasis. No focal consolidation. IMPRESSION: 1. Right perinephric and right periureteral inflammation with mild right hydronephrosis and right hydroureter. No obstructing radiodense calculus identified. This may reflect presence of a radiolucent obstructing calculus in the right ureter versus ascending urinary tract infection/pyelonephritis. 2. Circumferential urinary bladder wall thickening, compatible with cystitis. 3. Small nonobstructing calculi are present in the lower pole of the right kidney measuring up to 0.4 cm. Please note that all CT scans at this facility use dose modulation, iterative reconstruction, and/or weight-based dosing when appropriate to reduce radiation dose to as low as reasonably achievable. Dictated by Zaira Ventura MD @ 01/11/2025 12:53:14 PM (Electronically Signed)
--- NOTE | 2025-01-11 11:10 | ED.ABDPAIN ---
HPI - Abdominal Pain General Chief Complaint: Abdominal Pain Stated Complaint: abdominal pain Time Seen by Provider: 01/11/25 10:55 History of Present Illness HPI narrative: Patient is a 34-year-old woman who is not sexually active who presents with right-sided abdominal pain. The pain is 10/10 and located in the right lower quadrant. She has had no nausea no vomiting no fevers. She had no symptoms last night and had normal bowel function yesterday. No further flatus and no bowel movements today. She states her period has been regular. She is not sexually active. She is unable to get comfortable in comes in approximately 7 hours after the onset of symptoms. Patient has not by her report had any abdominal surgeries previously. Related Data Home Medications ?Medication ?Instructions ?Recorded ?Confirmed dextroamphetamine-amphetamine 20 1 tab PO DAILY 02/14/24 01/11/25 mg tablet dextroamphetamine-amphetamine ER 1 cap PO BID 02/14/24 01/11/25 30 mg 24hr capsule,extend release gabapentin 300 mg capsule 600 mg PO QPM 01/11/25 01/11/25 Previous Rx's ?Medication ?Instructions ?Recorded ciprofloxacin HCl 250 mg tablet 250 mg PO BID #10 tabs 01/11/25 hydrocodone 5 mg-acetaminophen 325 1 tab PO Q8H PRN pain #14 tabs 01/11/25 mg tablet ondansetron 4 mg disintegrating 4 mg PO TID PRN nausea and 01/11/25 tablet vomiting #10 tabs Allergies Allergy/AdvReac Type Severity Reaction Status Date / Time amoxicillin Allergy Severe Verified 01/11/25 11:22 Review of Systems Status of ROS Reports: 10 or more systems reviewed and unremarkable except as noted in History and below Exam Narrative: Exam Narrative: EXAM GENERAL: Patient appears uncomfortable EYES: No scleral icterus. ENT: Tympanic membranes and oropharynx normal. THYROID: no thyroid nodules or thyromegaly. LYMPH: No supraclavicular or cervical lymphadenopathy. SKIN: Visible skin seen during exam normal or with benign process only. EXT: No dependent lower extremity pedal edema. HEART: Regular rate and rhythm with no murmurs, rubs, or gallops. LUNGS: Clear to auscultation bilaterally with no crackles or wheezes. ABD: Distended abdomen with hypoactive bowel sounds. PSYCH: Good eye contact, speech is not pressured. Const: Vital Signs, click to edit/add: Vital Signs - 24 hr 01/11/25 10:40 01/11/25 11:41 01/11/25 11:45 Temperature 98.0 F Pulse Rate 94 91 Pulse Rate [Pulse Oximeter] 88 Respiratory Rate 22 Blood Pressure [Ri ght Upper Arm] 185/102 H Pulse Oximetry 95 85 L 87 L Oxygen Delivery Me thod Room Air OxyMask Oxygen Flow Rate 2 01/11/25 11:50 01/11/25 12:00 01/11/25 12:15 Temperature Pulse Rate 89 93 Pulse Rate [Pulse Oximeter] Respiratory Rate Blood Pressure [Ri ght Upper Arm] Pulse Oximetry 95 94 Oxygen Delivery Me thod OxyMask OxyMask OxyMask Oxygen Flow Rate 2 2 2 Course Course ED Course: Patient seen examined. IV placed patient will have CT abdomen pelvis with IV contrast. CBC comprehensive metabolic panel lactate UA pending. Vital Signs Vital signs: Initial Vital Signs Temperature 98.0 F 01/11/25 10:40 Temperature Source Oral 01/11/25 10:40 Pulse Rate 88 01/11/25 10:40 Pulse Rhythm Regular 01/11/25 10:40 Respiratory Rate 22 01/11/25 10:40 Blood Pressure 185/102 H 01/11/25 10:40 Blood Pressure Mean 129 H 01/11/25 10:40 Blood Pressure Position Sitting 01/11/25 10:40 Pulse Oximetry 95 01/11/25 10:40 Oxygen Delivery Method Room Air 01/11/25 10:40 Vital Signs Temperature 98.0 F 01/11/25 10:40 Pulse Rate 88 01/11/25 10:40 Respiratory Rate 22 01/11/25 10:40 Blood Pressure 185/102 H 01/11/25 10:40 Pulse Oximetry 95 01/11/25 10:40 Oxygen Delivery Method Room Air 01/11/25 10:40 Temperature 98.0 F 01/11/25 10:40 Pulse Rate 93 01/11/25 12:15 Respiratory Rate 22 01/11/25 10:40 Blood Pressure 185/102 H 01/11/25 10:40 Pulse Oximetry 94 01/11/25 12:15 Oxygen Delivery Method OxyMask 01/11/25 12:15 Oxygen Flow Rate 2 01/11/25 12:15 Medications Administered Medications: Discontinued Medications Generic Name Dose Route Start Last Admin Trade Name Freq PRN Reason Stop Dose Admin Hydromorphone HCl 0.5 mg 01/11/25 11:28 01/11/25 11:31 Hydromorphone 0.5 Mg/0.5 Ml Inj IVP 01/11/25 11:29 0.5 mg ONCE ONE Administration Sodium Chloride 1,000 mls @ 1,000 mls/hr 01/11/25 11:03 01/11/25 12:30 0.9 % Sodium Chloride 1000 Ml IV 01/11/25 12:02 Infused .Q1H ZAK Infusion Ondansetron HCl 4 mg 01/11/25 11:28 01/11/25 11:31 Ondansetron 2 Mg/Ml Inj IVP 01/11/25 11:29 4 mg ONCE ONE Administration MDM - Abdominal Pain MDM Narrative Medical decision making narrative: Patient is a 34-year-old woman who presents with right-sided flank pain. She does have some red cells i her urine and her CT is consistent with a recently passed stone. She received normal saline Toradol and Dilaudid. She did get sleepy with the Dilaudid and we did observe her carefully. I did discharge her to home with Cipro for 5 days [place] 1-2/4-6 [address] Zofran as needed drink plenty of fluids and follow-up with her primary physician. Lab Data Labs: Lab Results 01/11/25 01/11/25 Range/Units 10:50 11:10 WBC 12.25 H (4.50-11.00) K/uL RBC 4.55 (4.00-5.20) m/uL Hgb 14.7 (12.0-16.0) gm/dL Hct 43.7 (33.0-51.0) % MCV 96 (80-100) fL MCH 32 (26-34) pg MCHC 34 (32-36) gm/dL RDW Coeff of Timoteo 12.4 (11.5-15.5) % Plt Count 384 (140-440) K/uL Neut % (Auto) 70.7 (42.0-72.0) % Lymph % (Auto) 18.4 L (20-44) % [place] % (Auto) 9.1 (0.0-11.0) % Eos % (Auto) 0.7 (0.0-7.0) % Baso % (Auto) 0.7 (0.0-3.0) % Neut # (Auto) 8.70 H (1.7-7.0) K/uL Lymph # (Auto) 2.30 (0.90-2.90) K/uL [place] # (Auto) 1.10 H (0.00-0.90) K/UL Eos # (Auto) 0.10 (0.00-0.50) K/uL Baso # (Auto) 0.10 (0.00-0.30) K/uL Abs Immat Gran (auto) 0.00 (0.00-0.30) K/uL Imm/Tot Granulo (auto) 0.4 % Sodium 134 L (135-149) mmol/L Potassium 3.8 (3.6-5.1) mmol/L Chloride 97 (96-114) mmol/L Carbon Dioxide 24 (20-32) mmol/L Anion Gap 13 (7-15) mEq/L BUN 7 (5-24) mg/dL Creatinine 0.7 (0.5-1.5) mg/dL Estimated Creat Clear 231.10 Estimated GFR 116 ml/min Glucose 196 H (60-115) mg/dL Lactate 1.6 (0.5-1.9) mmol/L Calcium 9.2 (8.4-10.6) mg/dL Total Bilirubin 0.9 (0.1-1.5) mg/dL AST 213 H (12-35) U/L ALT 267 H (4-35) U/L Alkaline Phosphatase 119 (40-150) U/L Total Protein 8.8 H (6.0-8.3) g/dL Albumin 4.4 (3.3-5.0) g/dL Lipase 103 (23-300) U/L Urine Color Yellow (Yellow) Urine Appearance Clear (Clear) Urine pH 6.5 (5.0-8.5) Ur Specific [place] 1.020 (1.000-1.030) Urine Protein 1+ A (Negative) Urine Glucose (UA) Negative (Negative) Urine Ketones 1+ A (Negative) Urine Blood Trace-intact A (Negative) Urine Nitrite Negative (Negative) Urine Bilirubin Negative (Negative) Urine Urobilinogen 0.2 (0.2-1.0) Ur Leukocyte Esterase Negative (Negative) Urine RBC 2-5 A (0-2) Urine WBC 2-5 (0-5) Ur Squamous Epith Cells Few (None-Few) Urine Bacteria Few A (None) Discharge Plan Discharge Clinical Impression: Kidney calculi Patient Disposition: Home, Self-Care Condition: Stable Instructions: Kidney Stones (ED) Additional Instructions: Cipro as directed [place] as directed Zofran as directed Plenty of fluids. Follow-up with your doctor this week. Activity Level: No Restrictions Discharge Diet: Regular Prescriptions: New hydrocodone-acetaminophen 5-325 mg tablet 1 tab PO Q8H PRN (Reason: pain) Qty: 14 0RF ciprofloxacin HCl 250 mg tablet 250 mg PO BID Qty: 10 0RF ondansetron 4 mg tablet,disintegrating 4 mg PO TID PRN (Reason: nausea and vomiting) Qty: 10 0RF No Action dextroamphetamine-amphetamine 20 mg tablet 1 tab PO DAILY dextroamphetamine-amphetamine 30 mg capsule,extended release 24hr 1 cap PO BID gabapentin 300 mg capsule 600 mg PO QPM Follow Up/Referrals: Provider,Not a Local [Primary Care Provider, Family Practice] Stand Alone Forms: [facility] Info Instructions
[2025-01-11 11:17] LABS: Lactate* 1.6 mmol/L (0.5-1.9)
[2025-01-11 11:18] LABS: Hematocrit* 43.7 % (33.0-51.0); Hemoglobin* 14.7 gm/dL (12.0-16.0); Immature Granulocytes Pct Auto 0.4 %; Mean Corpuscular HGB Conc 34 gm/dL (32-36); Mean Corpuscular Hemoglobin 32 pg (26-34); Mean Corpuscular Volume 96 fL (80-100); RDW Coefficient of Variation % 12.4 % (11.5-15.5); Red Blood Count* 4.55 m/uL (4.00-5.20); White Blood Count* 12.25 K/uL (4.50-11.00)
[2025-01-11 11:20] LABS: Immature Granulocytes Abs Auto 0.00 K/uL (0.00-0.30); Lymphocytes Absolute Auto 2.30 K/uL (0.90-2.90); Slide Review Reflex No
[2025-01-11] MEDS: ONDANSETRON 2 MG/ML inj 4 MG IVP (11:31)
[2025-01-11 11:32] LABS: Albumin* 4.4 g/dL (3.3-5.0); Chloride* 97 mmol/L (96-114); Potassium* 3.8 mmol/L (3.6-5.1); Sodium* 134 mmol/L (135-149)
[2025-01-11 11:34] LABS: Blood Urea Nitrogen* 7 mg/dL (5-24); Creatinine* 0.7 mg/dL (0.5-1.5); Estimated Glomerular Filt Rate 116 ml/min
[2025-01-11 11:35] LABS: Alanine Aminotransferase* 267 U/L (4-35); Alkaline Phosphatase* 119 U/L (40-150); Anion Gap 13 mEq/L (7-15); Aspartate Amino Transferase* 213 U/L (12-35); Bilirubin Total* 0.9 mg/dL (0.1-1.5); Calcium* 9.2 mg/dL (8.4-10.6); Carbon Dioxide* 24 mmol/L (20-32); Glucose* 196 mg/dL (60-115); Total Protein* 8.8 g/dL (6.0-8.3)
== END 2025-01-11 13:29 | disposition home or self-care (01) ==
PROVIDERS: Emergency Provider Internal Medicine
DX: N20.0 Calculus of kidney (principal)
CPT/HCPCS: 36415; 74177; 80053; 81001; 83605; 83690; 85025; 87086; 94761; 96361; 96374; 96375; 99283; 99284; 99285; J1171; J2405; J7030; Q9967